=== PATIENT | female | born 1985 | race Caucasian/White ===

== ENCOUNTER 2018-11-29 10:44 | Emergency (ER) | payer MEDICARE, MEDICAID ==
[~2018-11-29] VITALS: Ht 167.6 cm; Wt 71.1 kg
[~2018-11-29 10:44] MED LIST: AMLO10TA8 PO; CALC300T5 PO; CLON0.2T PO; FURO80TA77 PO; HYDR1TAB13 PO; LANS15TA6 PO; LOSA100T14 PO; PROP120C3 PO; SERT25TA PO; SEVE800T8 PO; emla cream
--- NOTE | 2018-11-29 11:55 | NUR ---
PT REPORTS MIGRAINE MATIAS BEGINNING 10 DAYS AGO. HX OF, HOME MEDS XANAX/FIORCET/IMMITREX NOT WORKING. PT REPORTS SHE RECEIVED NERVE BLOCK AT ER (7DAYS AGO) THAT WAS ALSO INEFFECTIVE. DESCRIBES PAIN PRESSURE TO ENTIRE HEAD. APPEARS WELL. NO FOCAL DEFICITS. DOES REPORT NAUSEA AND LIIGHT SENSITIVITY WEARING SUNGLASSES). PATIENT REPORTS HX OF DIALYSIS (HAD SESSION THIS MORNING W/OUT EVENT). ON MONITOR, VSS, CALL BURROUGHS IN HAND Addendum: 11/29/18 at 1200 by RFRUHLING W/ RE-CHECK OF VITAL HR 105 & TEMP 99.3. PROVIDER MADE AWARE. TO PLACE PIV
[2018-11-29] MEDS ORDERED: BUTA1CAP30 PO (12:07)
[2018-11-29] MEDS ORDERED: PANT40TA5 PO (12:07)
[2018-11-29] MEDS ORDERED: SUMA25TA3 PO (12:07)
[2018-11-29] MEDS ORDERED: CYCL-259 PO (12:07)
[2018-11-29] MEDS ORDERED: ALPR1TAB10 SL (12:07)
[2018-11-29] MEDS ORDERED: PROCHLORPERAZINE 5 MG/ML, 2ML IVPush ONE (12:30)
[2018-11-29] MEDS ORDERED: DIPHENHYDRAMINE 50 MG/ML, 1ML IVPush ONE (12:30)
[2018-11-29] MEDS ORDERED: KETOROLAC 30 MG/1 ML IVPush ONE (12:30)
[2018-11-29] MEDS ORDERED: SODIUM CHLORIDE 0.9% 1,000ML IVBOLUS ONE (12:30)
[2018-11-29] MEDS ORDERED: SODIUM CHLORIDE FLUSH 10ML SYR IVF ONE (12:30)
--- NOTE | 2018-11-29 12:30 | NUR ---
LAB UNABLE TO OBTAIN BLOOD. HYDROELECTRIC COMPONENT MACHINIST TO USE ULTRASOUND TO PLACE PIV SHORTLY. PATIENT UPDATED WITH POC. ON MONITOR. CALL BURROUGHS IN HAND
[2018-11-29 13:03] LABS: ALBUMIN 4.6 g/dL (3.4-5.0); ANION GAP 8 mmol/L (5-15); CALCIUM 9.9 mg/dL (8.5-10.1); CHLORIDE 97 mmol/L (98-107)
[2018-11-29 13:08] LABS: ALANINE AMINOTRANSFERASE 37 U/L (12-78); ALKALINE PHOSPHATASE 337 U/L (45-117); BILIRUBIN,TOTAL 0.5 mg/dL (0.2-1.0); CREATININE 4.23 mg/dL (0.55-1.02); TOTAL PROTEIN 8.4 g/dL (6.4-8.2)
[2018-11-29] MEDS ORDERED: PROCHLORPERAZINE 5 MG/ML, 2ML ONE (13:34)
[2018-11-29] MEDS ORDERED: DIPHENHYDRAMINE 50 MG/ML, 1ML ONE (13:34)
[2018-11-29] MEDS ORDERED: KETOROLAC 30 MG/1 ML ONE (13:34)
--- NOTE | 2018-11-29 13:47 | NUR ---
GLOBAL SAFETY OFFICER FINALLY ABLE TO OBTAIN PIV. LABS SENT & PATIENT MEDICATED. REMAINS ON THE MONITOR. GIVEN PILLOW & LIGHTS DIMMED. UPDATED WITH ESTIMATED POC
[2018-11-29 13:53] LABS: BASOPHILS # (AUTO) 0.11 x10^3/uL (0-0.1); BASOPHILS % (AUTO) 1 % (0-1); EOSINOPHILS % (AUTO) 1 % (1-7); LYMPHOCYTES # (AUTO) 1.71 x10^3/uL (1-3.4); LYMPHOCYTES % (AUTO) 20 % (22-44); MD NO; MEAN CORPUSCULAR HEMOGLOBIN 30.1 pg (27.0-34.8); MEAN CORPUSCULAR HGB CONC 33.8 g/dL (32.4-35.8); MEAN CORPUSCULAR VOLUME 89.3 fL (80-100); MEAN PLATELET VOLUME 8.5 fL (7.4-10.4); MONOCYTES # (AUTO) 0.49 x10^3/uL (0.2-0.8); MONOCYTES % (AUTO) 6 % (2-9); NEUTROPHILS # (AUTO) 6.26 x10^3/uL (1.8-6.8); NEUTROPHILS % (AUTO) 72 % (42-75); PLATELET COUNT 285 x10^3/uL (130-400); RED BLOOD COUNT 4.16 x10^6/uL (3.82-5.3); RED CELL DISTRIBUTION WIDTH 15.2 % (9.6-15.2)
--- NOTE | 2018-11-29 14:00 | NUR ---
PATIENT REPORTS MATIAS IMPROVED FROM 10 TO 6 WITH INTERVENTIONS. NOW TAKING PO FLUID/ SOLIDS. HR SLIGHTLY IMPROVED. ASKING TO GO HOME. PROVIDER MADE AWARE. VSS
--- NOTE | 2018-11-29 14:30 | NUR ---
PATIENT CONFIDENT MATIAS WILL CONTINUE TO IMPROVE. ENCOURGED TO INCREASE PO FLUID FOR REHYDRATION (HR) AND F/U WITH PCP IN REGARD TO HTN. PATIENT AGREEABLE. DISCHARGED IN THE COMPANY OF HER FRINED.
[2018-11-29 14:38] VITALS: BP 163/129
== END 2018-11-29 14:39 | disposition home or self-care (01) ==
LOC: ED 11:43
DX: G43.909 Migraine, unspecified, not intractable, without status migrainosus (principal); N18.6 End stage renal disease; Z99.2 Dependence on renal dialysis
CPT/HCPCS: 36415; 80053; 85025; 96361; 96374; 96375; 99283; J0780; J1200; J1885; J7030

== ENCOUNTER 2019-12-24 23:26 | Emergency (ER) | payer MEDICARE, MEDICAID ==
[~2019-12-24] VITALS: Ht 167.6 cm; Wt 75.0 kg
[~2019-12-24 23:26] MED LIST changes: +ALPR1TAB10 SL; +BUTA1CAP30 PO; +CYCL-259 PO; +PANT40TA5 PO; -PROP120C3 PO; +PROP120C50 PO; +SUMA25TA3 PO
--- NOTE | 2019-12-24 23:44 | NUR ---
Patient presents to ER c/o sore throat, cough, SOB x1 week. Patient seen at [facility] on Sunday and tested negative for strep and flu. Patient was also tested for COVID nasally and orally. Patient has not heard about those results yet. Patient states she has had low grade fevers. She takes pain meds everyday fdue to kidney transplant therefore she has not taken Tylenol. She did take a pain pill at 2100. Patient is in NAD. Respirations even and unlabored.
[2019-12-25 00:44] LABS: BASOPHILS # (AUTO) 0.03 x10^3/uL (0-0.1); BASOPHILS % (AUTO) 0 % (0-1); EOSINOPHILS # (AUTO) 0.15 x10^3/uL (0-0.4); EOSINOPHILS % (AUTO) 2 % (1-7); LYMPHOCYTES # (AUTO) 0.71 x10^3/uL (1-3.4); LYMPHOCYTES % (AUTO) 10 % (22-44); MD NO; MEAN CORPUSCULAR HEMOGLOBIN 29.7 pg (27.0-34.8); MEAN CORPUSCULAR HGB CONC 33.7 g/dL (32.4-35.8); MEAN CORPUSCULAR VOLUME 88.1 fL (80-100); MEAN PLATELET VOLUME 8.3 fL (7.4-10.4); MONOCYTES # (AUTO) 0.67 x10^3/uL (0.2-0.8); MONOCYTES % (AUTO) 10 % (2-9); NEUTROPHILS # (AUTO) 5.43 x10^3/uL (1.8-6.8); NEUTROPHILS % (AUTO) 78 % (42-75); PLATELET COUNT 344 x10^3/uL (130-400); RED BLOOD COUNT 4.54 x10^6/uL (3.82-5.3); RED CELL DISTRIBUTION WIDTH 13.4 % (9.6-15.2)
[2019-12-25 00:57] LABS: ALBUMIN 4.1 g/dL (3.4-5.0); ANION GAP 6 mmol/L (5-15); CALCIUM 10.3 mg/dL (8.5-10.1); CHLORIDE 106 mmol/L (98-107); CREATININE 0.72 mg/dL (0.55-1.02)
[2019-12-25 01:00] VITALS: BP 128/77
[2019-12-25 01:01] LABS: TROPONIN I < 0.015 ng/mL (0.000-0.045)
== END 2019-12-25 01:26 | disposition home or self-care (01) ==
LOC: ED 23:45
DX: J02.8 Acute pharyngitis due to other specified organisms (principal); R05 Cough; R50.9 Fever, unspecified; R07.89 Other chest pain; N18.6 End stage renal disease; Z99.2 Dependence on renal dialysis; Z87.891 Personal history of nicotine dependence
CPT/HCPCS: 36415; 71045; 80048; 82040; 84484; 85025; 87040; 93005; 99285